=== PATIENT | female | born 1955 | race Caucasian/White ===

== ENCOUNTER 2018-10-25 10:06 | Emergency (ER) | payer SELFPAY ==
[~2018-10-25] VITALS: Ht 175.3 cm; Wt 79.4 kg
[2018-10-25] MEDS ORDERED: KETOROLAC TROMETHAMINE 30 MG/ML VIAL IV STA (10:25)
[2018-10-25 10:45] LABS: BASOPHILS % 0.2 % (0.0-1.0); EOSINOPHILS # (AUTO) 0.2 (0.0-0.4); EOSINOPHILS % 1.8 % (0.0-6.0); HEMATOCRIT 42.9 % (34.2-44.1); HEMOGLOBIN 13.7 g/dL (12.0-16.0); LYMPHOCYTES # (AUTO) 2.5 (1.0-3.2); LYMPHOCYTES % 25.8 % (18.0-39.1); MEAN CORPUSCULAR HEMOGLOBIN 27.5 pg (28-32); MEAN CORPUSCULAR HGB CONC 31.9 g/dL (31-35); MONOCYTES # (AUTO) 0.5 (0.2-0.8); MONOCYTES % 5.6 % (4.4-11.3); NEUTROPHILS # (AUTO) 6.4 (2.1-6.9); NEUTROPHILS % 66.3 % (38.7-80.0); PLATELET COUNT 255 x10e3/uL (140-360); RED BLOOD COUNT 4.99 x10e6/uL (3.6-5.1); RED CELL DISTRIBUTION WIDTH 13.2 % (11.7-14.4)
[2018-10-25 10:48] LABS: INR 0.88; PROTHROMBIN TIME 12.8 seconds (11.9-14.5)
[2018-10-25 10:49] LABS: PARTIAL THROMBOPLASTIN TIME 25.4 seconds (23.8-35.5)
[2018-10-25 11:00] LABS: ALANINE AMINOTRANSFERASE 16 IU/L (0-55); ALBUMIN 4.4 g/dL (3.5-5.0); ALBUMIN/GLOBULIN RATIO 1.2 (0.8-2.0); ALKALINE PHOSPHATASE 71 IU/L (40-150); ANION GAP 17.9 mmol/L (8-16); BLOOD UREA NITROGEN 15 mg/dL (7-26); BUN/CREATININE RATIO 15 (6-25); CALCIUM 10.2 mg/dL (8.4-10.2); CARBON DIOXIDE 19 mmol/L (22-29); CHLORIDE 106 mmol/L (98-107); CREATINE KINASE 180 IU/L (29-168); CREATININE, SERUM 0.98 mg/dL (0.57-1.11); EST GLOMERULAR FILTRATION RATE 58 ML/MIN (60-); GLUCOSE 116 mg/dL (74-118); MAGNESIUM 2.3 MG/DL (1.3-2.1); POTASSIUM 3.9 mmol/L (3.5-5.1); SODIUM 139 mmol/L (136-145)
--- NOTE | 2018-10-25 11:28 | Diagnostic Imaging Report ---
FRONTAL VIEW OF THE CHEST AND 3 ADDITIONAL VIEWS OF THE LEFT RIBS - 4 TOTAL VIEWS HISTORY: Left chest wall pain, hit ribs left side COMPARISON: Chest radiograph October 25, 2018 FINDINGS: Bones: Subtle cortical irregularity at the posterolateral aspect of the lateral 10th rib, only seen on one view. Soft tissues: The soft tissues appear unremarkable. IMPRESSION: Questionable nondisplaced fracture involving the posterolateral aspect of the left 10th rib, correlate for focal point tenderness. Signed by: Dr. Mau Brown D.O., M.M.M. on 10/25/2018 11:24 AM
--- NOTE | 2018-10-25 11:52 | Diagnostic Imaging Report ---
EXAMINATION: CHEST 2 VIEWS INDICATION: Left chest wall pain. COMPARISON: None FINDINGS: TUBES and LINES: None. LUNGS: Lungs are well inflated. Lungs are clear. There is no evidence of pneumonia or pulmonary edema. PLEURA: No pleural effusion or pneumothorax. HEART AND MEDIASTINUM: The cardiomediastinal silhouette is unremarkable. BONES AND SOFT TISSUES: No acute osseous lesion. Soft tissues are unremarkable. No evidence of displaced fracture. UPPER ABDOMEN: No free air under the diaphragm. IMPRESSION: No acute radiographic abnormality. Signed by: Dr. Umu Shane MD on 10/25/2018 11:48 AM
[2018-10-25 11:54] LABS: CLARITY,URINE CLEAR (CLEAR); COLOR,URINE YELLOW (YELLOW)
[2018-10-25 11:55] LABS: AMPHETAMINES SCREEN,URINE NEGATIVE (NEGATIVE); BENZODIAZEPINES SCREEN,URINE POSITIVE (NEGATIVE); KETONES,URINE NEGATIVE (NEGATIVE); LEUKOCYTE ESTERASE ,URINE NEGATIVE (NEGATIVE); NITRITE,URINE NEGATIVE (NEGATIVE); PHENCYCLIDINE SCREEN,URINE NEGATIVE (NEGATIVE); PROTEIN,URINE DIPSTICK NEGATIVE (NEGATIVE)
[2018-10-25 12:02] LABS: BILIRUBIN,URINE NEGATIVE (NEGATIVE); EPITHELIAL CELLS,URINE FEW /LPF; URINE UROBILINOGEN 0.2 mg/dL (0.2 - 1); WBC,URINE (MAN) 0-5 /HPF (0-5)
[2018-10-25 12:27] VITALS: BP 138/80
== END 2018-10-25 12:35 | disposition home or self-care (01) ==
LOC: ER 10:06
DX: R07.89 Other chest pain (principal); S20.219A Contusion of unspecified front wall of thorax, initial encounter; Y04.0XXA Assault by unarmed brawl or fight, initial encounter; Y92.008 Other place in unspecified non-institutional (private) residence as the place of occurrence of the external cause; I10 Essential (primary) hypertension; F41.9 Anxiety disorder, unspecified; Z86.73 Personal history of transient ischemic attack (TIA), and cerebral infarction without residual deficits
CPT/HCPCS: 36415; 71046; 71101; 80053; 80307; 81001; 82550; 82553; 83735; 84484; 85025; 85610; 85730; 93005; 99284; J1885

== ENCOUNTER 2018-10-28 09:39 | Emergency (ER) | payer SELFPAY ==
[~2018-10-28] VITALS: Ht 175.3 cm; Wt 79.4 kg
--- OUTSIDE RECORDS SUMMARY | 2018-10-28 09:41 | XMS REPORT ---
Author Author [facility] Address Unknown Phone Unavailable Care Team Providers Care Mechanic Assistant Name Role Phone Ariana FORBES Unavailable Unavailable Problems This patient has no known problems. Allergies, Adverse Reactions, Alerts This patient has no known allergies or adverse reactions. Medications This patient has no known medications. Results Test Description Test Time Test Comments Text Results Atomic Results Result Comments RIBS UNILAT W/CXR 2018-10-25 11:18:00 [place] [address] Patient Name: CLAUDIA VARGAS MR #: [id number] : 1955 Age/Sex: 63/F Req #: [id number] [facility] Physician: Ordered by: TAJ DE LEON SOX ANALYST Report #: [id number] Location: ER Room/Bed: Procedure: [id number] DX/RIBS UNILAT W/CXR Exam Date: 10/25/18 Exam Time: 1055 REPORT STATUS: Signed FRONTAL VIEW OF THE CHEST AND 3 ADDITIONAL VIEWS OF THE LEFT RIBS - 4 TOTAL VIEWS HISTORY: Left chest wall pain, hit ribs left side COMPARISON: Chest radiograph October 25, 2018 FINDINGS: Bones: Subtle cortical irregularity at the posterolateral aspect of the lateral 10th rib, only seen on one view. Soft tissues: The soft tissues appear unremarkable. IMPRESSION: Questionable nondisplaced fracture involving the posterolateral aspect of the left 10th rib, correlate for focal point tenderness. Signed by: Dr. Shubham Brown D.O., M.M.M. on 10/25/2018 11:24 AM Dictated By: SHUBHAM BROWN DO Transcribed By: MIKAYLA on 10/25/18 1124 COPY TO: TAJ DE LEON SOX ANALYST CHEST 2 VIEWS 2018-10-25 11:16:00 [place] [address] Patient Name: CLAUDIA VARGAS MR #: [id number] : 1955 Age/Sex: 63/F Req #: [id number] Adm Physician: Ordered by: TAJ DE LEON SOX ANALYST Report #: [id number] Location: ER Room/Bed: Procedure: [id number] DX/CHEST 2 VIEWS Exam Date: 10/25/18 Exam Time: 1055 REPORT STATUS: Signed EXAMINATION: CHEST 2 VIEWS INDICATION: Left chest w all pain. COMPARISON: None FINDINGS: TUBES and LINES: None. LUNGS: Lungs are well inflated. Lungs are clear. There is no evidence of pneumonia or pulmonary edema. PLEURA: No pleural effusion or pneumothorax. HEART AND MEDIASTINUM: The cardiomediastinal silhouette is unremarkable. BONES AND SOFT TISSUES: No acute osseous lesion. Soft tissues are unremarkable. No evidence of displaced fracture. UPPER ABDOMEN: No free air under the diaphragm. IMPRESSION: No acute radiographic abnormality. Signed by: Dr. Noah Zaidi MD on 10/25/2018 11:48 AM Dictated By: NOAH ZAIDI MD [id number] Transcribed By: MIKAYLA on 10/25/18 1148 COPY TO: TAJ DE LEON SOX ANALYST
[2018-10-28] MEDS ORDERED: ULTRAM 50MG50 MG PO (11:18)
[2018-10-28] MEDS ORDERED: TRAMADOL HCL 50 MG TAB PO NR (11:30)
--- NOTE | 2018-10-28 11:32 | Diagnostic Imaging Report ---
EXAMINATION: CHEST 2 VIEWS INDICATION: ^Seen 10/25/18, Dx Rt 10th fx. Increased pain, R/o pulm cont COMPARISON: Chest x-ray 10/25/2018. FINDINGS: PA and lateral views TUBES and LINES: None. LUNGS: Lungs are hyper inflated. Lungs are clear. There is no evidence of pneumonia or pulmonary edema. PLEURA: No pleural effusion or pneumothorax. HEART AND MEDIASTINUM: The cardiomediastinal silhouette is unremarkable. BONES AND SOFT TISSUES: No acute osseous lesion. Soft tissues are unremarkable. UPPER ABDOMEN: No free air under the diaphragm. IMPRESSION: 1. Hyperinflated lungs consistent with emphysema. 2. No acute pulmonary opacities. 3. Previous cortical irregularity of the lateral 10th rib is better seen on previous rib series x-ray. Signed by: Dr. Blair Tran M.D. on 10/28/2018 11:28 AM
[2018-10-28 12:13] VITALS: BP 153/92
== END 2018-10-28 12:10 | disposition home or self-care (01) ==
LOC: ER 09:39
DX: R07.89 Other chest pain (principal); S22.32XA Fracture of one rib, left side, initial encounter for closed fracture; Y04.0XXA Assault by unarmed brawl or fight, initial encounter; Y92.008 Other place in unspecified non-institutional (private) residence as the place of occurrence of the external cause; I10 Essential (primary) hypertension; F41.9 Anxiety disorder, unspecified; J45.909 Unspecified asthma, uncomplicated; Z86.73 Personal history of transient ischemic attack (TIA), and cerebral infarction without residual deficits
CPT/HCPCS: 71046; 99283

== ENCOUNTER 2024-07-22 10:13 | Emergency (ER) | payer MEDICARE ==
[~2024-07-22] VITALS: Ht 175.3 cm; Wt 92.1 kg
[~2024-07-22 10:13] MED LIST: ULTRAM 50MG50 MG PO
[2024-07-22 10:35] VITALS: TEMP 98.4
[2024-07-22] MEDS: ONDANSETRON HCL 4 MG ORAL DISINTEGRATING TAB PO ONE (11:06)
[2024-07-22] MEDS: HYDROCODONE/APAP 7.5MG-325MG 1 EA TAB PO ONE (11:07)
[2024-07-22] MEDS ORDERED: MUPIROCIN22 GM TOP (14:25)
[2024-07-22] MEDS ORDERED: METHOCARBAMOL750 MG PO (14:25)
[2024-07-22 15:00] VITALS: PULSE 76; RESP 16; O2SAT 100
== END 2024-07-22 15:00 | disposition home or self-care (01) ==
LOC: ER 10:20
DX: S20.213A Contusion of bilateral front wall of thorax, initial encounter (principal); S40.011A Contusion of right shoulder, initial encounter; S70.01XA Contusion of right hip, initial encounter; S80.01XA Contusion of right knee, initial encounter; S90.02XA Contusion of left ankle, initial encounter; S90.01XA Contusion of right ankle, initial encounter; S70.311A Abrasion, right thigh, initial encounter; S80.812A Abrasion, left lower leg, initial encounter; S90.812A Abrasion, left foot, initial encounter; W17.1XXA Fall into storm drain or manhole, initial encounter; Y93.01 Activity, walking, marching and hiking; Y92.017 Garden or yard in single-family (private) house as the place of occurrence of the external cause; I10 Essential (primary) hypertension; J45.909 Unspecified asthma, uncomplicated; F41.9 Anxiety disorder, unspecified
CPT/HCPCS: 71101; 72110; 73030; 73502; 73552; 73562; 73610; 73630 ×2; 99283; Q0162